=== PATIENT | male | born 1980 | race Caucasian/White ===

== ENCOUNTER 2025-04-24 07:48 | Outpatient (AMB) | payer OTHER, SELFPAY ==
--- NOTE | 2025-04-24 08:07 | MHC.PC.OV ---
Vital Signs 04/24/25 08:09 Height 5 ft 2.99 in Weight 151 lb 4 oz BMI 26.8 BP 122/60 Blood Pressure Location Lt brachial Position Sitting Temp 97.5 F Temp Source Temporal Artery Scan Intake Visit Reasons: establish care Intake Note: Patient is a new patient here to establish care for HTN, Anxiety, Manic Depression, Chronic pain, Hernia in stomach and groin area. Transferring care from [facility]. Medical records have been requested and have not received. Research Home Economist Required: No Chief Nursing Officer: Present Accompanied by: Motorcycle Tester Allergies ibuprofen (IBUPROFEN) Allergy (Unknown, Verified 04/24/25 08:25) rash naproxen (From NAPROSYN) Allergy (Unknown, Verified 04/24/25 08:25) rash Medication List - Last Reconciled 04/24/25 by Lorrie Bill PA-C methadone 115 mg PO DAILY methadone 30 mg PO .QHS Tobacco use date assessed: 04/24/25 Dental Screening Dental Screen Date: 04/24/25 Did you have a dental visit in the last 12 months?: No Did you have a dental problem in the last 6 months where you did not have access to dental care?: No Was dental information given to patient?: No (Dentures) HPI establish care HPI Details 44-year-old male coming to the office for 1st time. Patient was previously being seen by [facility] a few years back but has not been seen since 2021. He does routinely go to a methadone clinic for chronic pain related to multiple hernias. He has been evaluated in the past for the hernias both umbilical and inguinal and does not want an exam today. He does admit to depression following recent change in relationship status. He states he has been struggling with a recent break-up. He also mentions having pauses in his asleep which is ex-girlfriend noticed where he had stopped breathing. [facility] Surgical History History of tooth extraction History of surgery on wrist Family History Father Heart attack Social History Housing: Apartment Alcohol intake: current Alcohol intake frequency: a few times a month Patient Tobacco Use Status: Current everyday Tobacco user Tobacco use type: Cigarette Cigarette Packs Per Day: 1 Cigarettes Per Day: 20 e-Cigarette/Vaping Use: Currently Using Second Hand Smoke Exposure: Yes Substance Use Type: Marijuana service: No Current occupational status: unemployed Cognitive needs: No Hearing needs: No Vision needs: No Questionnaire PHQ-9 Over the last 2 weeks, how often have you been bothered by any of the following problems? 1. Little interest or pleasure in doing things: not at all 2. Feeling down, depressed, or hopeless: nearly every day 3. Trouble falling or staying asleep, or sleeping too much: several days 4. Feeling tired or having little energy: nearly every day 5. Poor appetite or overeating: nearly every day 6. Feeling bad about yourself - or that you are a failure or have let yourself or your family down: nearly every day 7. Trouble concentrating on things, such as reading the newspaper or watching television: not at all 8. Moving or speaking so slowly that other people could have noticed. Or the opposite - being so fidgety or restless that you have been moving around a lot more than usual: not at all 9. Thoughts that you would be better off or of hurting yourself in some way: not at all Total score: 13 Depression Screening Interpretation: Positive (referral to counseling placed today ) Depression Screening Follow-up: Existing condition Depression Screening Done: Yes 37798 - PHQ-9 Billing: Yes Source: Developed by Drs. Alonso Vela, Diana Serna, Meño Delgadillo and colleagues, with an educational skyler from [employer]. Thrive Questionnaire Date Thrive assessed: 04/24/25 I am a: Patient What is your living situation today?: I have a steady place to live Within the past 12 months, did the food you bought not last and you didn't have the money to get more?: Sometimes True Within the past 12 months, did you worry whether your food would run out before you got money to buy more?: Sometimes True Do you have trouble paying for medicines?: Yes Do you have trouble getting transportation to medical appointments?: No Do you have trouble paying your heating and electricity bill?: No Do you have trouble taking care of your child, family member or friend?: No Do you have trouble with day-to-day activities such as bathing, preparing meals, shopping, managing finances, etc.?: No Are you currently unemployed and looking for a job?: Yes Are you interested in more education?: Yes Please select the resources that you would like help with: None Currently or been in a relationship where the following occur: I choose not to answer THRIVE Score: 2 AUDIT C Alcohol Use Questionnaire (AUDIT-C) 1. How often do you have a drink containing alcohol?: Monthly or less 2. How many drinks containing alcohol do you have on a typical day when you are drinking?: 1 or 2 3. How often do you have six or more drinks on one occasion?: Less than monthly Total Score: 2 BRIT-7 AMB Questionnaire BRIT-7 Date BRIT - 7 assessed: 04/24/25 Feeling nervous, anxious, or on edge: 3 = Nearly every day Not being able to stop or control worryin = Nearly every day Worrying too much about different things: 3 = Nearly every day Trouble relaxin = Nearly every day Being so restless that it is hard to sit still: 3 = Nearly every day Becoming easily annoyed or irritable: 3 = Nearly every day Feeling afraid as if something awful might happen: 3 = Nearly every day Total BRIT-7 score (0-4 normal; 5-9 mild; 10-14 moderate; 15-21 severe): 21 Source: Developed by Drs. Alonso Vela, Diana Serna, Meño Delgadillo and colleagues, with an educational skyler from [employer]. BRIT-7 Assessment Billing BRIT-7 Assessment Tool: BRIT-7 Assessment 02642 Review of Systems Const Denies chills, Denies fever(s), Denies headache(s) and Denies poor appetite Eyes Reports no additional complaints ENT Denies dizziness and Denies headache(s) Card Denies chest pain, Denies lightheadedness and Denies dyspnea Resp Denies dyspnea GI Details: hernia pain Denies abdominal pain, Denies nausea and Denies vomiting Reports no additional complaints Musc Reports no additional complaints and Denies abnormal gait Skin/Breast Reports system reviewed and no additional complaints, except as documented Neuro Denies abnormal gait, Denies dizziness and Denies headache(s) Psych Reports no additional complaints Physical exam (Primary Care) Vital Signs: Last Vital Signs Temp 97.5 F 04/24/25 08:09 BP 122/60 04/24/25 08:09 BMI result Body Mass Index 26.8 Tobacco/Smoking Status: Tobacco use Status Tobacco use date assessed 04/24/25 04/24/25 08:23 Patient Tobacco Use Status Current everyday Tobacco 04/24/25 08:23 Tobacco use type Cigarette 04/24/25 08:23 e-Cigarette/Vaping Use Currently Using 04/24/25 08:23 PHQ-9: PHQ-9 Score PHQ-9: Total score 13 04/24/25 08:47 Depression Screening Interpretation: Positive (referral to counseling placed today ) Depression Screening Follow-up: Existing condition Thrive Assessment: Date of Thrive Assessment Date Thrive assessed 04/24/25 04/24/25 08:23 Currently or been in a relationship where the following occur: I choose not to answer Const General: cooperative, healthy appearing, comfortable and no acute distress Orientation/consciousness: patient oriented x3 HENMT Head: Yes normocephalic Ears: hearing grossly normal bilaterally General nose exam: Normal external nose present Eyes General: appearance normal, both eyes and all related structures Conjunctivae: conjunctivae normal Neck Neck: Yes full ROM and Yes no lymphadenopathy Resp Effort & Inspection: normal respiratory effort Auscultation: clear to auscultation bilaterally, no crackles, no rales, no rhonchi and no wheezes Cardio Rate: regular rate Rhythm: regular rhythm Skin General skin exam: no rashes or lesions noted Neuro General: patient oriented x3 Gait exam (Neuro): Normal gait present Extrem General: Yes normal to inspection, Yes full ROM and No edema Psych Affect: normal affect Attitude: cooperative Insight: Good insight present (Psych) Judgement: Good judgement present (Psych) Coding Level of Care Code New Pt Level 4 (31975) Diagnoses Manic depression F31.9 Anxiety F41.9 Primary hypertension I10 Hypertension type: primary hypertension Tobacco use disorder F17.200 Chronic pain G89.29 Inguinal hernia K40.90 Umbilical hernia K42.9 Anemia D64.9 GERD (gastroesophageal reflux disease) K21.9 Hypersomnolence G47.10 Additional Codes BRIT-7 Assessment Billing - BRIT-7 Assessment Tool: BRIT-7 Assessment 38116 ([id number]) PHQ-9 - 27493 - PHQ-9 Billing: Yes ([id number]) Assessment & Plan Assessment & Plan (1) Manic depression: Code(s): F31.9 - Bipolar disorder, unspecified Category: Medical Plan: Patient having history of manic depression recent exacerbation after a break-up. He is declining medical management at this time but is interested in a counselor and referral was placed today. He does also have a counselor through his methadone clinic and is working on establishing with a new one. (2) Anxiety: Code(s): F41.9 - Anxiety disorder, unspecified Category: Medical Plan: See above (3) Hypertension: Code(s): I10 - Essential (primary) hypertension Category: Medical Qualifiers: Hypertension type: primary hypertension Qualified Code(s): I10 - Essential (primary) hypertension Plan: Avoid salt intake and encourage healthy diet and regular exercise. (4) Tobacco use disorder: Code(s): F17.200 - Nicotine dependence, unspecified, uncomplicated Category: Medical Plan: Smoking cigarettes and the use of tobacco can be harmful. We discussed the importance of stopping and options to aid in smoking cessation. Declined nicotine replacement therapy or medication management at this time. (5) Chronic pain: Comment: Pain w/ hernias On methadone w/ [facility] Code(s): G89.29 - Other chronic pain Category: Medical Plan: Patient has chronic pain reportedly related to inguinal and umbilical hernia pain. I did discuss with the patient he should be evaluated for the hernias this treatment may resolve his pain. He is interested in coming off of the methadone and he will work to taper down his methadone with the clinic. (6) Inguinal hernia: Code(s): K40.90 - Unilateral inguinal hernia, without obstruction or gangrene, not specified as recurrent Category: Medical Plan: Patient has previous history of inguinal and umbilical hernia. He is declining exam today. Plan to obtain his previous notes for further evidence and referral was placed to General surgery for consultation. (7) Umbilical hernia: Code(s): K42.9 - Umbilical hernia without obstruction or gangrene Category: Medical Plan: See above (8) Anemia: Code(s): D64.9 - Anemia, unspecified Category: Medical Plan: Patient has routine blood work completed through the methadone clinic most recently showing anemia. Plan to obtain CBC for further evaluation. (9) GERD (gastroesophageal reflux disease): Code(s): K21.9 - Gastro-esophageal reflux disease without esophagitis Category: Medical Plan: Avoid trigger foods such as citrus, tomato products, soda, caffeine, spicy foods and other foods that may be irritating to your stomach. Avoid laying flat 3-4 hours after eating and elevate the head of the bed 30 degrees to prevent acid from moving into the esophagus. (10) Hypersomnolence: Code(s): G47.10 - Hypersomnia, unspecified Category: Medical Plan: Plan to obtain sleep study for further evaluation of hypersomnolence and pauses in breathing. Plan This note was constructed using voice recognition software. While every effort has been made to ensure accuracy and dye reel operator, still areas may have been included sometimes these areas may affect the content or meeting of the given symptoms. Total time spent caring for the patient today was 30 minutes. This includes time spent before the visit reviewing the chart, time spent during the visit, and time spent after the visit and documentation. Orders: Orders Complete Blood Count Auto Diff Today D64.9 - Anemia, unspecified, Z00.00 - Encounter for general adult medical examination without abnormal findings Comprehensive Met. Panel Today I10 - Essential (primary) hypertension, Z00.00 - Encounter for general adult medical examination without abnormal findings RT home sleep study Today G47.10 - Hypersomnia, unspecified Vitamin B12 and Folate Today I10 - Essential (primary) hypertension, Z13.21 - Encounter for screening for nutritional disorder Vitamin D 25-OH Total Today I10 - Essential (primary) hypertension, Z00.00 - Encounter for general adult medical examination without abnormal findings TSH reflex Free T4 Today I10 - Essential (primary) hypertension, Z00.00 - Encounter for general adult medical examination without abnormal findings Free T4 (Free Thyroxine) Today I10 - Essential (primary) hypertension, Z00.00 - Encounter for general adult medical examination without abnormal findings Lipid Panel Today Z13.220 - Encounter for screening for lipoid disorders Referrals General Surgery Referral K40.90 - Unilateral inguinal hernia, without obstruction or gangrene, not specified as recurrent, K42.9 - Umbilical hernia without obstruction or gangrene Counseling Referral F31.9 - Bipolar disorder, unspecified, F41.9 - Anxiety disorder, unspecified
[2025-04-24 08:09] VITALS: BP 122/60; TEMP 36.4; BMI 26.8
== END 2025-04-24 09:04 | disposition home or self-care (01) ==
LOC: HO.HMCH 07:49
DX: F31.9 Bipolar disorder, unspecified (principal); F41.9 Anxiety disorder, unspecified; I10 Essential (primary) hypertension; F17.200 Nicotine dependence, unspecified, uncomplicated; G89.29 Other chronic pain; K40.90 Unilateral inguinal hernia, without obstruction or gangrene, not specified as recurrent; K42.9 Umbilical hernia without obstruction or gangrene; D64.9 Anemia, unspecified; K21.9 Gastro-esophageal reflux disease without esophagitis; G47.10 Hypersomnia, unspecified

== ENCOUNTER → 2025-04-24 07:48 | Outpatient (BNVA) | payer OTHER, SELFPAY | DX: I10 Essential (primary) hypertension (principal); F41.9 Anxiety disorder, unspecified; F31.9 Bipolar disorder, unspecified; D64.9 Anemia, unspecified; K40.90 Unilateral inguinal hernia, without obstruction or gangrene, not specified as recurrent; K21.9 Gastro-esophageal reflux disease without esophagitis; G47.10 Hypersomnia, unspecified; G89.29 Other chronic pain; F17.210 Nicotine dependence, cigarettes, uncomplicated | CPT/HCPCS: 96127; 99202 ==

== ENCOUNTER 2025-05-08 09:13 | Outpatient (REF) | payer OTHER, SELFPAY ==
[2025-05-08 10:33] LABS: MANUAL DIFF FLAG NO
[2025-05-08 10:38] LABS: Hematocrit 37.8 % (42.0-52.0); Hemoglobin 12.6 g/dl (14.0-18.0); Imm Gran Abs Auto 0.02 X10*3/uL (0.00-0.03); Imm Gran Pct Auto 0.3 % (0.0-0.4); Lymphocytes Absolute Auto 2.0 X10*3/uL (1.2-4.9); Mean Corpuscular HGB Conc 33.3 g/dl (31.0-36.0); Mean Corpuscular Hemoglobin 34.5 pg (27.0-33.0); Mean Corpuscular Volume 103.6 fL (80.0-98.0); NRBC Abs Auto 0.000 X10*3/uL (0.0-0.012); NRBC Pct Auto 0.0 /100WBC (0.0-0.2); Platelet Count 122 X10*3/uL (160-400); Red Blood Count 3.65 X10*6/uL (4.60-5.80); White Blood Count 6.9 X10*3/uL (4.8-10.8)
[2025-05-08 16:21] LABS: Alanine Aminotransferase 7 U/L (0-40); Albumin Level 4.3 g/dL (3.5-5.0); Alkaline Phosphatase 47 U/L (39-117); Anion Gap 10 (12-20); Aspartate Amino Transferase 25 U/L (5-37); Blood Urea Nitrogen 14 mg/dL (9-16); Calcium 8.4 mg/dL (8.4-10.2); Carbon Dioxide 32 mmol/L (22-29); Chloride 104 mmol/L (96-108); Cholesterol 161 mg/dL (<200); Estimated Glomerular Filt Rate 60; HDL Cholesterol 34 mg/dL (>40); Potassium 4.1 mmol/L (3.3-5.1); Sodium 142 mmol/L (135-145); Total Protein 6.4 g/dL (6.5-8.0); Triglycerides 80 mg/dL (<150)
[2025-05-08 16:38] LABS: Free T4 (Free Thyroxine) 0.92 ng/dL (0.71-1.85)
[2025-05-08 16:43] LABS: Folate 6.7 ng/mL (> or = 4.0); Vitamin B12 199 pg/mL (200-900)
== END 2025-05-08 09:14 | disposition home or self-care (01) ==
LOC: HO.HMGCLDS 09:13
DX: Z00.00 Encounter for general adult medical examination without abnormal findings (principal); I10 Essential (primary) hypertension; D64.9 Anemia, unspecified; Z13.21 Encounter for screening for nutritional disorder; Z13.220 Encounter for screening for lipoid disorders
CPT/HCPCS: 36415; 80053; 80061; 82306; 82607; 82746; 84439; 84443; 85025

== ENCOUNTER 2025-06-13 08:49 | Outpatient (REF) | payer OTHER, SELFPAY ==
[2025-06-13 10:05] LABS: MANUAL DIFF FLAG NO
[2025-06-13 10:10] LABS: Hematocrit 40.7 % (42.0-52.0); Hemoglobin 13.6 g/dl (14.0-18.0); Imm Gran Abs Auto 0.02 X10*3/uL (0.00-0.03); Imm Gran Pct Auto 0.2 % (0.0-0.4); Lymphocytes Absolute Auto 2.0 X10*3/uL (1.2-4.9); Mean Corpuscular HGB Conc 33.4 g/dl (31.0-36.0); Mean Corpuscular Hemoglobin 34.8 pg (27.0-33.0); Mean Corpuscular Volume 104.1 fL (80.0-98.0); NRBC Abs Auto 0.000 X10*3/uL (0.0-0.012); NRBC Pct Auto 0.0 /100WBC (0.0-0.2); Platelet Count 141 X10*3/uL (160-400); Red Blood Count 3.91 X10*6/uL (4.60-5.80); White Blood Count 8.0 X10*3/uL (4.8-10.8)
[2025-06-13 10:52] LABS: Folate 8.1 ng/mL (> or = 4.0); Vitamin B12 215 pg/mL (200-900)
== END 2025-06-13 08:50 | disposition home or self-care (01) ==
LOC: HO.HMGCLDS 08:49
DX: Z00.00 Encounter for general adult medical examination without abnormal findings (principal); Z13.21 Encounter for screening for nutritional disorder; D64.9 Anemia, unspecified
CPT/HCPCS: 36415; 82607; 82746; 85025

== ENCOUNTER 2025-06-27 12:40 | Outpatient (AMB) | payer OTHER, SELFPAY ==
--- NOTE | 2025-06-27 13:04 | A.OFFVIS_ITS ---
Vital Signs 3 06/27/25 13:11 Height 5 ft 2 in Weight 150 lb BMI 27.4 BP 103/66 Blood Pressure Location Lt brachial Position Sitting Pulse 72 Intake Visit Reasons: hernia Intake Note: Patient is seen in office for evaluation of a hernia. Pt c/o: left groin and above the belly button, was lifting a refrigerator, been there since he was a teen, and is very painful, lump has increase in size, constant pain, worse when coughing, no imaging Volcanology Teacher Required: No Accompanied by: Other Relationship Allergies ibuprofen (IBUPROFEN) Allergy (Unknown, Verified 06/27/25 13:11) rash naproxen (From NAPROSYN) Allergy (Unknown, Verified 06/27/25 13:11) rash Medication List - Last Reconciled 06/27/25 by Lauro Reilly MD methadone 115 mg PO DAILY methadone 30 mg PO .QHS HPI Comments Details: 44-year-old male patient presenting for evaluation of a left inguinal and umbilical hernia. He reports noting the left inguinal hernias since he was 17 years old after lifting his mother's refrigerator. He noted a painful lump in the left groin which has gradually increased in size. The lump does occasionally give discomfort but he notes he is able to reduce the hernia with light pressure especially when in the supine position. He denies any nausea, vomiting, diarrhea, constipation, bloody stool, or other associated GI symptoms. He denies a previous history of hernia surgeries. Also of note is an umbilical hernia which has also been present most of his life. He is extremely nervous about undergoing anesthesia in his not very interested in undergoing surgery at this time. [facility] Surgical History History of tooth extraction History of surgery on wrist Family History Father Heart attack Social History Housing: Apartment Alcohol intake: current Alcohol intake frequency: a few times a month Patient Tobacco Use Status: Current everyday Tobacco user Tobacco use type: Cigarette Cigarette Packs Per Day: 1 Cigarettes Per Day: 20 e-Cigarette/Vaping Use: Currently Using Second Hand Smoke Exposure: Yes Substance Use Type: Marijuana service: No Current occupational status: unemployed Cognitive needs: No Hearing needs: No Vision needs: No Review of Systems Const All systems reviewed & are unremarkable except as noted in HPI and below Physical Exam Vital Signs: Last Vital Signs Pulse 72 06/27/25 13:11 BP 103/66 06/27/25 13:11 BMI result Body Mass Index 27.4 Const General: cooperative and no acute distress Nutritional Appearance: well nourished Orientation/consciousness: patient oriented x3 Limitations: no limitations HEENT Head: Yes normocephalic and Yes atraumatic Ears: hearing grossly normal bilaterally Resp Effort & Inspection: normal respiratory effort, no audible wheezes, Actively coughing and no respiratory distress Cardio Jugular venous distension: no JVD GI Other: Soft and nondistended, abdomen flat with normal bowel sounds. Easily identified left inguinal hernia which does easily reduced with light pressure even in the standing position. Hernia does increase in size with Valsalva maneuvers. Reducible umbilical hernias also noted in the upper portion of the umbilicus. This measures approximately 2 cm in diameter and is reducible. Inspection: Yes normal to inspection Abdomen image: 2 1. Umbilical hernia, 2 cm, reducible 2. Left inguinal hernia, reducible, possible direct Skin Other: Warm, dry, no rash Neuro General: patient oriented x3 Extrem General: Yes no clubbing, cyanosis or edema Assessment & Plan Assessment & Plan (1) Inguinal hernia: Code(s): K40.90 - Unilateral inguinal hernia, without obstruction or gangrene, not specified as recurrent Category: Medical Qualifiers: Obstruction and gangrene presence: without obstruction or gangrene L aterality: unilateral Recurrence: non-recurrent Qualified Code(s): K40.90 - Unilateral inguinal hernia, without obstruction or gangrene, not specified as recurrent (2) Umbilical hernia: Code(s): K42.9 - Umbilical hernia without obstruction or gangrene Category: Medical Qualifiers: Obstruction and gangrene presence: without obstruction or gangrene Q ualified Code(s): K42.9 - Umbilical hernia without obstruction or gangrene Plan 44-year-old male patient presenting with a long history of an umbilical and left inguinal hernia. On examination both the umbilical and left inguinal hernia reducible and nontender to palpation. I reviewed the procedure, risks and alternatives to repair of the umbilical and left inguinal hernia with mesh. I also reviewed the risks of observation as well as the signs and symptoms when he should seek urgent surgical evaluation. He expressed understanding. He is fearful of undergoing anesthesia and surgery and not interested in scheduling a repair of the umbilical and/or left inguinal hernia at this time. He is welcome to call should the symptoms worsen or if he changes his mind regarding surgery. Coding Level of Care Code New Pt Level 4 (91372) Diagnoses Non-recurrent unilateral inguinal hernia without obstruction or gangrene K40.90 Obstruction and gangrene presence: without obstruction or gangrene Laterality: unilateral Recurrence: non-recurrent Umbilical hernia without obstruction and without gangrene K42.9 Obstruction and gangrene presence: without obstruction or gangrene
[2025-06-27 13:11] VITALS: BP 103/66; PULSE 72; BMI 27.4
== END 2025-06-27 13:47 | disposition home or self-care (01) ==
LOC: HO.HGS 12:41
PROVIDERS: Visit Provider Surgery
DX: K40.90 Unilateral inguinal hernia, without obstruction or gangrene, not specified as recurrent (principal); K42.9 Umbilical hernia without obstruction or gangrene
CPT/HCPCS: 99204

== ENCOUNTER → 2025-06-27 12:40 | Outpatient (BNVA) | payer OTHER, SELFPAY | PROVIDERS: Visit Provider Surgery | DX: K40.90 Unilateral inguinal hernia, without obstruction or gangrene, not specified as recurrent (principal); K42.9 Umbilical hernia without obstruction or gangrene | CPT/HCPCS: 99202 ==